=== PATIENT | male | born 1975 | race Caucasian/White ===

== ENCOUNTER 2025-04-08 08:41 | Day surgery (SDC) | payer BC ==
[2025-04-07 10:21] VITALS: BMI 29.7
[~2025-04-08 08:41] MED LIST: EPINEPHrine 0.3 MG in Ophthalmic Irrigation Solution 500 ML IRR SCH
[2025-04-08] MEDS ORDERED: Cyclopentolate 1% Opth Drop 2 ML BOT ONE (09:42)
[2025-04-08] MEDS ORDERED: Lidocaine 1% PF 5 ML VIAL ONE ×2 (10:01→11:05)
[2025-04-08] MEDS ORDERED: CEFAZOLIN 1 GM VIAL ONE (11:05)
[2025-04-08] MEDS ORDERED: Acetylcholine 20 MG/2 ML VIAL (OR CHARGE) ONE (11:05)
[2025-04-08] MEDS ORDERED: Lidocaine 4% PF 5 ML AMP ONE (11:05)
[2025-04-08] MEDS ORDERED: PROPOFOL 200 MG/20 ML VIAL ONE (11:05)
[2025-04-08] MEDS ORDERED: Ondansetron PF 4 MG/2 ML Vial ONE (11:09)
[2025-04-08] MEDS ORDERED: PHENYLEPHRINE-NS 100 MCG/ML 10 ML SYRINGE ONE (12:09)
== END 2025-04-08 14:25 | disposition home or self-care (01) ==
LOC: SDC 08:41
PROVIDERS: ATTEND Ophthalmology Retina Specialist
DX: T85.22XA Displacement of intraocular lens, initial encounter (principal); H43.311 Vitreous membranes and strands, right eye
CPT/HCPCS: J0166; J0690; J1100; J2003; J2250; J2405; J2704; J3010; J3301; J3490; V2632